=== PATIENT | male | born 1945 | race African-American/Black ===

== ENCOUNTER 2018-05-27 07:35 | Day surgery (SDC) | payer MEDICARE ==
[~2018-05-27] VITALS: Ht 106.7 cm; Wt 90.0 kg
[2018-05-27 08:31] LABS: APTT 33.4 SECONDS (22.8-39.4); INR 1.36 (0.85-1.17); PROTIME 16.2 SECONDS (11.6-15.0)
[2018-05-27 08:33] LABS: ALBUMIN 2.2 g/dL (3.4-5.0); ANION GAP 18.1 mmol/L (8-16); BILIRUBIN - TOTAL 0.44 mg/dL (0.2-1.3); CALCIUM 7.8 mg/dL (8.5-10.1); CARBON DIOXIDE 25.6 mmol/L (21.0-32.0); CREATININE - SERUM 8.6 mg/dL (0.6-1.3); POTASSIUM - SERUM 3.7 mmol/L (3.5-5.1)
[2018-05-27 08:41] LABS: BASOPHILS 0.6 % (0-2); EOSINOPHILS 3.7 % (0-7); HEMATOCRIT 28.8 % (42.0-54.0); HEMOGLOBIN 9.8 g/dL (13.5-17.5); LYMPHOCYTES 26.4 % (15-50); MCH 25.5 pg (26.0-34.0); MEAN PLATELET VOLUME 10.8 fL (7.4-10.4); MONOCYTES 10.4 % (2-11); NEUTROPHILS 58.9 % (40-80); PLATELET COUNT 228 10x3/uL (130-400); RBC 3.84 10x6/uL (4.20-6.10); RDW 15.8 % (11.5-14.5); WBC 6.2 10x3/uL (4.8-10.8)
[2018-05-27] MEDS ORDERED: PROSCAR5 MG (09:07)
[2018-05-27] MEDS ORDERED: FLOMAX0.4 MG PO (09:07)
[2018-05-27] MEDS ORDERED: RENVELA800 MG PO (09:08)
[2018-05-27] MEDS ORDERED: LOPRESSOR25 MG PO ×2 (09:08→14:43)
[2018-05-27] MEDS ORDERED: ELIQUIS2.5 MG (09:09)
[2018-05-27] MEDS ORDERED: BACLOFEN10 MG PO (09:10)
[2018-05-27] MEDS ORDERED: PLAVIX75 MG PO (09:10)
[2018-05-27] MEDS ORDERED: MUPIROCIN22 GM (09:11)
[2018-05-27] MEDS ORDERED: NORCO 7.5/325 T1 TA1 (09:11)
[2018-05-27] MEDS ORDERED: BACTRIM 400-801 TAB (09:11)
[2018-05-27 09:14] VITALS: BP 120/64; BMI 79.2
--- NOTE | 2018-05-27 12:50 | NUR ---
PATIENT ARRIVED TO THE FLOOR VIA BED WITH THE POST OP NURSE RUDI. THE PATIENT IS CONFUSED, COMBATIVE, HOLLERING OUT, TRYING TO REMOVE HIS IV, REMOVING HIS GOWN, HITTING THE STAFF. RUDI WENT TO FIND THE PATIENTS FAMILY, AND BOTH THE DAUGHTER AND THE NIECE CAME TO THE ROOM. THEY WERE INFORMED THAT THE PATIENT IS UNSAFE TO BE LEFT ALONE UNTIL THE MEDICATION WEARS OFF, AND THEY AGREED THAT SOMEBODY WILL STAY IN THE ROOM. THE PATIENT WAS VERY AGRESSIVE/COMBATIVE WHEN THIS NURSE WAS WRAPPING HIS LOWER LEFT ARM WITH KERLIX TO TRY TO PROTECT THE IV SITE, THE PATIENT GRABED THIS NURSES TWO FINGERS ON LEFT HAND AND WOULD NOT LET GO,WHILE SCREAMING OUT "THIS IS THE DAMNEST THING". LATASHA ANNE WAS IN THE ROOM ASSISTING THIS NURSE AND HELPED TO REMOVE THE PATIENTS HAND FROM THE NURSES FINGERS, ALL THE WHILE THE PATIENT SWINGING HIS FISTS AND HOLLERING. WILL CONT TO MONITOR/ADMIT
[2018-05-27 13:52] VITALS: BP 142/89
[2018-05-27] MEDS ORDERED: BAYER CHEWABLE81 MG PO (14:40)
[2018-05-27] MEDS ORDERED: SENSIPAR30 MG PO (14:42)
[2018-05-27 14:53] VITALS: Ht 106.7 cm; Wt 90.0 kg
[2018-05-27 16:43] VITALS: BP 130/79
--- NOTE | 2018-05-27 18:35 | NUR ---
PATIENT IS RESTING WITH EYES CLOSED, ICE PK TO [facility] SITE, DRESSING WITH DRIED BLOOD, NO NEW DRAINAGE NOTED. REQUESTED THE PATIENTS FAMILY TO STAY WITH THE PATIENT HE IS STILL CONFUSED, THINKING HE IS AT HOME. HE WAKES TO REPEATED SPEACH, REFUSES HIS SUPPER AFTER 2 SMALL BITES. RECLINER PROVIDED TO THE PATIENTS DAUGHTER.
[2018-05-27 20:00] VITALS: BP 137/72
--- NOTE | 2018-05-27 20:38 | NUR ---
REPORT RECEIVED. PT SITTING UP IN BED WITH EYES OPEN, FAMILY MEMBER AT BEDSIDE. ICE PACK IN PLACE ON RIGHT CHEST. NO S/S OF DISTRESS. BED IN LOW POSITION. CALL LIGHT IN REACH. WILL CONTINUE TO MONITOR.
[2018-05-28] VITALS: BP 121/70
--- NOTE | 2018-05-28 00:05 | NUR ---
ADMINISTERED ORDERED ANALGESIC FOR COMPLAINTS OF PAIN IN BOTTOM, PT STATES PAIN OF A 7 ON A SCALE OF 0-10.
--- NOTE | 2018-05-28 02:10 | NUR ---
PT SITTING UP IN BED WITH EYES OPEN, RESTING COMFORTABLY. NO S/S OF DISTRESS. NIECE AT BEDSIDE. CALL LIGHT IN REACH. BED IN LOW POSITION. WILL CONTINUE TO MONITOR.
[2018-05-28 04:00] VITALS: BP 122/65
[2018-05-28 07:00] VITALS: BP 107/74
--- NOTE | 2018-05-28 07:15 | NUR ---
REPORT RECIEVED AND ROUNDING COMPLETE. PT LAYING INBED EYES CLOSED. BREATHING EVEN AND UNLABORED. PT'S DAUGHTER AT BEDSIDE SLEEPING. CALL LIGHT WITHIN REACH AND BED IN LOWEST POSITION.
--- NOTE | 2018-05-28 10:21 | NUR ---
RESTS IN BED WITH EYES CLOSED. CALL LIGHT IN REACH. WILL MONITOR NEEDS.
[2018-05-28 11:00] VITALS: BP 140/86
--- NOTE | 2018-05-28 14:45 | NUR ---
CALLED [facility], PT IS DISCHARGED. ORDER PUT IN THE [facility] CALLED TO ASSIST IN GETTING PT INTO WHEELCHAIR SO HE CAN GO HOME WITH HIS DAUGHTER. NO OTHER NEEDS AT THIS TIME.
[2018-05-28 15:00] VITALS: BP 108/67
--- NOTE | 2018-05-28 20:24 | NUR ---
[facility] HERE TO NETWORK SECURITY ADMINISTRATOR PATIENT. IV TO LFA LEFT IN PLACE PER REQUEST OF EMS IN CASE THEY NEED IT TO GIVE ANY PAIN OR NAUSEA MEDS TO PATIENT DURING THE 2.5 HOUR TRIP HOME. HIS RIGHT CHEST WALL HEMOSPLIT IS C/D/I WITH CAPS ON BOTH LINES AND BOTH SIDES CLAMPED. PT IS CLEAN/DRY WITH BRIEF IN PLACE. DISCHARGED TO HOME VIA AMBULANCE AT THIS TIME. DAUGHTER AT BEDSIDE. ALL BELONGINGS WITH PATIENT.
[2018-05-28 20:25] VITALS: BP 167/77
--- NOTE | 2018-06-04 17:01 | OP ---
PATIENT NAME: MARTINE ANDERSON MEDICAL RECORD: [id number] :47 LOCATION:[facility] ADMISSION DATE: SURGEON: MALAIKA ROJAS MD DATE OF OPERATION: 05/27/2018 He is here as an outpatient, having surgery. REFERRING PHYSICIAN: Dr. Weaver of [place]. PREOPERATIVE DIAGNOSES: End-stage renal disease, dependence on hemodialysis with thrombosed right wrist radiocephalic arteriovenous fistula. POSTEOPERATIVE DIAGNOSES: End-stage renal disease, dependent on hemodialysis with thrombosed right wrist radiocephalic arteriovenous fistula with additional comorbidities hypertension, diabetes, coronary artery disease, and peripheral artery disease. PREOPERATIVE NOTE: He is brought to the operating room to perform an AngioJet thrombolysis procedure and almost certainly he will need a tunneled dialysis catheter as well. ANESTHESIA: General per IDENTIFICATION OFFICER with an LMA. PREOPERATIVE NOTE: A 73-year-old -Citizen Of [place] male with thrombosed right forearm radiocephalic AV fistula, is here for AngioJet mechanical thrombolysis and hopefully salvage of his fistula and almost certainly will also have a TDC inserted. Under general anesthesia in supine position, the patient's right arm was prepped and draped in sterile manner. Using ultrasound guidance, the fistula was accessed twice in opposing directions once near the wrist directed towards the venous outflow and the other at the median cubital vein directed distally towards the wrist. Contrast injection demonstrated an almost totally filled fistula with organized thrombus and perhaps 99% long segmental stenosis with runoff via the basilic vein. The patient was given 2000 units of heparin. He is already on Eliquis and Plavix. I advanced a guidewire successfully from the venous port, proximal end of the basilic vein, and used the AngioJet device to try to lyse thrombus. Repeated contrast injections revealed essentially 100% obstruction due to organized thrombus and at that point was when I placed the second port just distal to the antecubital space. I was able to cross the stenosis from that direction also with a guidewire and passed a guidewire into the distal radial artery and shot a selective arteriogram, which demonstrated patency of the palmar arch and retrograde filling of the ulnar artery. I was then able to manipulate the guidewire and guide catheter into the proximal radial artery and advanced the wire and catheter up into the distal brachial artery and a selective brachial artery arteriogram was performed, which revealed no evidence of stenosis or other lesions of the artery supplying the fistula. I then used a 6-mm angioplasty balloon to dilate the fistula and try to macerate thrombus and repeated contrast injection essentially looked the same. I subsequently dilated the fistula and stenotic segment with a 12 mm angioplasty balloon and again had a little effect. I subsequently placed a 12 mm x 40 mm Fluency PTFE covered self-expanding stent in the area of stenosis. This was then subsequently dilated with first a 7 mm angioplasty balloon and then a 12 mm angioplasty balloon and a completion angiogram looked much better with runoff through about a 6 mm diameter median cubital and basilic vein. I removed the OPERATIVE REPORT [id number] MARTINE ANDERSON ports and sites were sutured with 4-0 Prolene and held with gentle compression for hemostasis. These sites were then dressed with Ultrafoam, Tegaderm, and Cavilon. I do not know whether this fistula will stay open or whether it will ever again be a usable fistula for him, so I decided to go ahead and place a HemoSplit. I examined the neck and found the right internal jugular to be patent and of normal caliber on ultrasound. He was then reprepped and redraped and a small incision at the base of the neck made directly over the internal jugular. With ultrasound guidance, a micropuncture needle and guidewire were inserted and under all this was done under fluoroscopy. A wire exchange was done and then dilators passed over the larger J wire again under fluoroscopy and lastly a dilator peel-away sheath was inserted. I chose a point just beneath the clavicle. I made a stab wound there and then placed the new 19-cm HemoSplit in a subcutaneous tunnel, bringing it up to the cervical incision and then inserted it through the peelaway sheath as the peelaway sheath was removed. Fluoroscopy revealed a very satisfactory positioning of the catheter in the right atrium without any kinks or any other signs of complications. Both lumens of the catheter were flushed with saline and then heparin locked, clamped and capped. Catheter was sutured to the skin near the exit site with 2-0 Prolene. The cervical incision was closed with interrupted inverted 3-0 Vicryl and Dermabond glue. A standard dressing for central venous lines along with a Biopatch was applied at the catheter exit site. The patient was awakened and taken to the recovery room in stable condition. I did not mention above, but that before advancing dilators I did use a 7-Turkmen introducer over a guidewire via the right internal jugular vein and performed a superior venacavogram, which demonstrated no lesions or abnormal anatomy. The patient's heparin was not reversed. The patient will be kept in overnight observation. Hopefully, he will have dialysis here either today or in the morning and be ready for discharge to home tomorrow. I would like him to be returned to the [facility] outpatient procedure center for a followup fistulogram in 3 or 4 weeks. In the meantime, we should use his HemoSplit for primary dialysis access. TRANSINT:[id number] Voice Confirmation ID: [id number] DOCUMENT ID: [id number] CC: [facility]- YONIS Thibodeaux MALAIKA ROJAS MD at 1701 CC: [facility] and LUIS WEAVER MD [id number] DICTATION DATE: 05/27/18 1312 COSMETIC MAKER: 05/27/184 [facility] 05/28/18 [facility] [address] [place] [address]
== END 2018-05-28 20:00 | disposition home or self-care (01) ==
LOC: D.OPS 07:35 → D.M2 07:35 → D.OPS 10:45 → D.M2 13:10 → D.OPS 05-28 20:00
PROVIDERS: Anesthesiology
DX: T82.868A Thrombosis due to vascular prosthetic devices, implants and grafts, initial encounter (principal); E11.22 Type 2 diabetes mellitus with diabetic chronic kidney disease; I12.0 Hypertensive chronic kidney disease with stage 5 chronic kidney disease or end stage renal disease; N18.6 End stage renal disease; Z99.2 Dependence on renal dialysis; I25.10 Atherosclerotic heart disease of native coronary artery without angina pectoris; I73.9 Peripheral vascular disease, unspecified; Z79.01 Long term (current) use of anticoagulants; Z79.02 Long term (current) use of antithrombotics/antiplatelets; Z01.812 Encounter for preprocedural laboratory examination